=== PATIENT | female | born 1955 | race Caucasian/White ===

== ENCOUNTER 2018-07-04 09:48 | Outpatient (CLI) | payer MEDICARE, OTHER ==
[~2018-07-04 09:48] MED LIST: ATEN100T PO; CALC1CAP10 PO; CHOL5000 PO; HYDR12.517 PO; UBID100C24 PO
== END 2018-07-04 23:59 | disposition home or self-care (01) ==
LOC: CFH 09:48
PROVIDERS: ATTEND Licensed Practical Nurse
DX: Z12.31 Encounter for screening mammogram for malignant neoplasm of breast (principal); Z13.820 Encounter for screening for osteoporosis; N95.8 Other specified menopausal and perimenopausal disorders; M85.88 Other specified disorders of bone density and structure, other site
CPT/HCPCS: 77063; 77080; 77067